=== PATIENT | male | born 1990 | race Caucasian/White ===

== ENCOUNTER → 2021-04-05 12:51 | Outpatient (CLI) | payer OTHER, SELFPAY ==
[2021-04-05 14:05] LABS: COVID19 -Nasal RAPID POSITIVE (Negative)
== END ==
PROVIDERS: Family Provider Family Medicine; PCP Family Medicine; Referring Provider Nurse Practitioner Family; Visit Provider Nurse Practitioner Family
DX: U07.1 COVID-19 (principal); Z20.822 Contact with and (suspected) exposure to COVID-19
CPT/HCPCS: 87635